=== PATIENT | female | born 1960 | race Caucasian/White ===

== ENCOUNTER 2018-09-19 05:02 | Emergency (ER) | payer MEDICARE, MEDICAID ==
--- NOTE | 2018-09-19 05:16 | ER Document Report ---
ED General - General Stated Complaint: ALTERED MENTAL STATUS
[2018-09-19 05:22] LABS: ABSOLUTE BASOPHILS # (AUTO) 0.1 10^3/uL (0.0-0.2); ABSOLUTE EOSINOPHILS # (AUTO) 0.3 10^3/uL (0.0-0.6); ABSOLUTE LYMPHOCYTES (AUTO) 2.2 10^3/uL (0.5-4.7); ABSOLUTE MONOCYTES (AUTO) 0.7 10^3/uL (0.1-1.4); ABSOLUTE NEUT (AUTO) 4.5 10^3/uL (1.7-8.2); BASOPHILS % (AUTO) 0.8 % (0-2); EOSINOPHILS % (AUTO) 3.4 % (0-6); HEMATOCRIT 33.4 % (36.0-47.0); HEMOGLOBIN 11.2 g/dL (12.0-15.5); LYMPHOCYTES % (AUTO) 28.4 % (13-45); MEAN CORPUSCULAR HEMOGLOBIN 26.3 pg (27.0-33.4); MEAN CORPUSCULAR HGB CONC 33.5 g/dL (32.0-36.0); MEAN CORPUSCULAR VOLUME 79 fl (80-97); MONOCYTES % (AUTO) 9.3 % (3-13); PLATELET COUNT 274 10^3/uL (150-450); RED BLOOD COUNT 4.26 10^6/uL (3.72-5.28); SEGMENTED NEUTROPHILS % (AUTO) 58.1 % (42-78); TOTAL CELLS COUNTED % (AUTO) 100 %; WHITE BLOOD COUNT 7.8 10^3/uL (4.0-10.5)
--- NOTE | 2018-09-19 05:32 | ER Document Report ---
ED Medical Screen (RME) - General Chief Complaint: Altered Mental Status Stated Complaint: ALTERED MENTAL STATUS Notes: Patient is a 58-year-old female who presents to the emergency department with altered mental status. [place] was [place] the park and [employer] was called and she was brought to the emergency department because she was altered. She has bruises to her right lateral chest, right hip, and right anterior ankle. She is unable to provide any meaningful history at time of assessment. TRAVEL OUTSIDE OF THE [place] IN LAST 30 DAYS: No Physical Exam - Vital signs Vitals: Temp Pulse Resp BP Pulse Ox 98.9 F 98 16 113/81 96 09/19/18 05:16 09/19/18 05:16 09/19/18 05:16 09/19/18 05:16 09/19/18 05:16 - Neurological Orientation: Disoriented to place, Disoriented to time, Disoriented to events [place] Coma Scale Eye Opening: To Voice [place] Coma Scale Verbal: Confused [place] Coma Scale Motor: Localizes to Pain [place] Coma Scale Total: 12 Course - Re-evaluation Re-evalutation: 09/19/18 05:15 Due to patient's altered mental status, she will be sent for a CT of the head, basic labs will be drawn, chest x-ray will be done, and urinalysis will be sent. I have greeted and performed a rapid initial assessment of this patient. A comprehensive ED assessment and evaluation of the patient, analysis of test results and completion of medical decision making process will be conducted by an additional ED providers. - Vital Signs Vital signs: Temp Pulse Resp BP Pulse Ox 98.9 F 98 16 113/81 96 09/19/18 05:16 09/19/18 05:16 09/19/18 05:16 09/19/18 05:16 09/19/18 05:16 - Laboratory Result Diagrams: 09/19/18 05:06 09/19/18 05:06 Laboratory results interpreted by me: 09/19/18 09/19/18 05:06 05:06 Hgb 11.2 L Hct 33.4 L MCV 79 L MCH 26.3 L POC Glucose 119 H
[2018-09-19 05:35] LABS: ALANINE AMINOTRANSFERASE 21 U/L (9-52); ALBUMIN 4.3 g/dL (3.5-5.0); ALKALINE PHOSPHATASE 99 U/L (38-126); ANION GAP 10 (5-19); ASPARTATE AMINO TRANSFERASE 46 U/L (14-36); BILIRUBIN,DIRECT 0.3 mg/dL (0.0-0.4); BILIRUBIN,TOTAL 0.4 mg/dL (0.2-1.3); BLOOD UREA NITROGEN 14 mg/dL (7-20); CALCIUM 9.5 mg/dL (8.4-10.2); CARBON DIOXIDE 28 mmol/L (22-30); CHLORIDE 102 mmol/L (98-107); GLUCOSE 119 mg/dL (75-110); POTASSIUM 4.3 mmol/L (3.6-5.0); SODIUM 139.8 mmol/L (137-145); TOTAL PROTEIN 6.9 g/dL (6.3-8.2)
[2018-09-19 05:41] LABS: ALCOHOL < 10 mg/dL (NONE DETECTED)
--- NOTE | 2018-09-19 05:44 | RADIOLOGY REPORT (SQ) ---
EXAM DESCRIPTION: CT HEAD WITHOUT IV CONTRAST COMPLETED DATE/TME: 09/19/2018 05:12 CLINICAL HISTORY: 58 years, Female, AMS COMPARISON: None. TECHNIQUE: 67 Images stored on PACS. All CT scanners at this facility use dose modulation, iterative reconstruction, and/or weight based dosing when appropriate to reduce radiation dose to as low as reasonably achievable (ALARA). [facility]: Dose Right [facility]: CareDose [facility]: Dose Right [facility]: Teradose 4D [facility]: [employer] LIMITATIONS: None. FINDINGS: The globes are intact. Paranasal sinuses and mastoid air cells are unremarkable. No displaced or depressed skull fracture. No intra or extra-axial hemorrhage. CT is limited for evaluation of acute infarct. No CT evidence for large or territorial acute infarct. No mass or midline shift IMPRESSION: Negative exam TECHNICAL DOCUMENTATION: Quality ID # 436: Final reports with documentation of one or more dose reduction techniques (e.g., Automated exposure control, adjustment of the mA and/or kV according to patient size, use of iterative reconstruction technique) copyright 2011 [employer]- All Rights Reserved
--- NOTE | 2018-09-19 06:13 | RADIOLOGY REPORT (SQ) ---
EXAM DESCRIPTION: XR ANKLE 3 OR MORE VIEWS COMPLETED DATE/TME: 09/19/2018 05:13 CLINICAL HISTORY: 58 years, Female, bruising COMPARISON: None. NUMBER OF VIEWS: 3 TECHNIQUE: 3 view right ankle LIMITATIONS: None. FINDINGS: Negative for acute fracture or dislocation. Mild soft tissue swelling. Ankle mortise is intact IMPRESSION: Mild soft tissue swelling. Negative for acute fracture copyright 2010 [employer]- All Rights Reserved
--- NOTE | 2018-09-19 06:14 | RADIOLOGY REPORT (SQ) ---
EXAM DESCRIPTION: XR CHEST 1 VIEW COMPLETED DATE/TME: 09/19/2018 05:15 CLINICAL HISTORY: 58 years, Female, AMS COMPARISON: None. NUMBER OF VIEWS: 1 TECHNIQUE: Portable chest LIMITATIONS: None. FINDINGS: Cardiac megaly. Scarring left lung base. Osteopenia. No pneumothorax IMPRESSION: Cardiomegaly. Scarring left lung base copyright 2010 [employer]- All Rights Reserved
--- NOTE | 2018-09-19 06:14 | RADIOLOGY REPORT (SQ) ---
EXAM DESCRIPTION: XR HIP 2 OR MORE VIEWS COMPLETED DATE/TME: 09/19/2018 05:13 CLINICAL HISTORY: 58 years, Female, bruising COMPARISON: None. NUMBER OF VIEWS: 2 TECHNIQUE: AP pelvis single view right hip LIMITATIONS: None. FINDINGS: Degenerative change of the hips bilaterally. Negative for acute fracture or dislocation. Soft tissue swelling lateral to the right hip. IMPRESSION: No acute osseous abnormality copyright 2010 [employer]- All Rights Reserved
--- NOTE | 2018-09-19 06:20 | RADIOLOGY REPORT (SQ) ---
EXAM DESCRIPTION: XR RIBS 2 VIEWS UNILATERAL COMPLETED DATE/TME: 09/19/2018 05:13 CLINICAL HISTORY: 58 years, Female, bruising COMPARISON: None. NUMBER OF VIEWS: 5 TECHNIQUE: 5 views of the right ribs LIMITATIONS: None. FINDINGS: Osteopenia. However, negative for acute right rib fracture. Soft tissues are unremarkable IMPRESSION: No discrete right rib fracture. Osteopenia copyright 2010 [employer]- All Rights Reserved
[2018-09-19 06:30] LABS: LIPASE 119.9 U/L (23-300)
[2018-09-19 06:33] LABS: ACETAMINOPHEN < 10 ug/mL (10-30); SALICYLATE < 1.0 mg/dL (2.0-20.0)
[2018-09-19 06:38] LABS: APPEARANCE,URINE CLEAR; BILIRUBIN,URINE NEGATIVE (NEGATIVE); COLOR,URINE YELLOW; GLUCOSE, URINE NEGATIVE (NEGATIVE); KETONES,URINE NEGATIVE (NEGATIVE); LEUKOCYTE ESTERASE,URINE TRACE (NEGATIVE); NITRITE,URINE NEGATIVE (NEGATIVE); PROTEIN,URINE NEGATIVE (NEGATIVE); URINE SPECIFIC GRAVITY 1.009; UROBILINOGEN,URINE NEGATIVE mg/dL (<2.0)
[2018-09-19] MEDS ORDERED: NORMAL SALINE 1000 ML 1,000 ML IV ONE (06:42)
[2018-09-19] MEDS ORDERED: DIPHENHYDRAMINE HCL 50 MG/ML VIAL IV ONE (06:42)
[2018-09-19] MEDS ORDERED: HALOPERIDOL LACTATE INJ 5 MG/1 ML VIAL IV ONE ×2 (06:42→07:30)
--- NOTE | 2018-09-19 06:53 | EKG REPORT ---
SEVERITY:- NORMAL ECG - SINUS RHYTHM : Confirmed by: Antionette Ramirez 19-Sep-2018 06:52:41
--- NOTE | 2018-09-19 06:54 | ER Document Report ---
ED General <CERONADAM - Last Filed: 09/19/18 15:54> - General TRAVEL OUTSIDE OF THE [place] IN LAST 30 DAYS: No - HPI Patient complains to provider of: Altered mental status <DAVID RIGGINS - Last Filed: 09/27/18 17:40> - General Chief Complaint: Altered Mental Status Stated Complaint: ALTERED MENTAL STATUS Time Seen by Provider: 09/19/18 06:07 - HPI Notes: Patient is being brought in for altered mental status. According to the nurse patient was brought in by local law enforcement. Nurse states that local law enforcement explained that this occurred at night prior found the patient in public was able to call a family member to have the patient picked up however tonight patient was found in the park naked and no family was available to take custody of the patient therefore brought her to the ER. Upon my evaluation patient has paper scrubs on is easily aroused with some slight agitation upon arrival moving all 4 extremities able to speak in complete sentences of the she is confused. Patient is unable to give any meaningful information A brief review of the patient's medical records available in [facility] was performed (DAVID RIGGINS) - Related Data Allergies/Adverse Reactions: No Known Allergies Allergy (Unverified 09/19/18 05:36) Past Medical History - Social History Smoking Status: Unknown if Ever Smoked Family History: Reviewed & Not Pertinent Patient has suicidal ideation: - unk Patient has homicidal ideation: - unk Renal/ Medical History: Denies: Hx Peritoneal Dialysis <DAVID RIGGINS - Last Filed: 09/27/18 17:40> Review of Systems - Review of Systems -: Yes ROS unobtainable due to patient's medical condition <DAVID RIGGINS - Last Filed: 09/27/18 17:40> - Review of Systems Notes: Altered mental status (DAVID RIGGINS) Physical Exam - Vital signs Interpretation: Normal - General General appearance: Appears well, Alert - HEENT Head: Normocephalic, Atraumatic Eyes: Normal Pupils: PERRL - Respiratory Respiratory status: No respiratory distress Chest status: Nontender Breath sounds: Normal Chest palpation: Normal - Cardiovascular Rhythm: Regular Heart sounds: Normal auscultation Murmur: No - Abdominal Inspection: Normal Distension: No distension Bowel sounds: Normal Tenderness: Nontender Organomegaly: No organomegaly - Back Back: Normal, Nontender - Extremities General upper extremity: Normal inspection, Nontender, Normal color, Normal ROM, Normal temperature General lower extremity: Nontender, Normal color, Normal ROM, Normal temperature, Normal weight bearing. No: Normal inspection - Bruising to the right thigh right ankle of various stages of healing, Shilpa's sign - Neurological Neuro grossly intact: Yes Cognition: Normal Orientation: AAOx4 [place] Coma Scale Eye Opening: Spontaneous [place] Coma Scale Verbal: Confused [place] Coma Scale Motor: Obeys Commands [place] Coma Scale Total: 14 Speech: Normal Motor strength normal: LUE, RUE, LLE, RLE Sensory: Normal - Psychological Associated symptoms: Agitated, Confused - Skin Skin Temperature: Warm Skin Moisture: Dry Skin Color: Normal <DAVID RIGGINS - Last Filed: 09/27/18 17:40> - Vital signs Vitals: Temp Pulse Resp BP Pulse Ox 98.9 F 98 16 113/81 96 09/19/18 05:16 09/19/18 05:16 09/19/18 05:16 09/19/18 05:16 09/19/18 05:16 Course - Laboratory Result Diagrams: 09/19/18 05:06 09/19/18 05:06 <ADAM CERON - Last Filed: 09/19/18 15:54> - Laboratory Result Diagrams: 09/19/18 05:06 09/19/18 05:06 <DAVID RIGGINS - Last Filed: 09/27/18 17:40> - Re-evaluation Re-evalutation: 09/19/18 06:53 Patient continued to become agitated difficult to redirect the patient back to her stretcher therefore medications were given to help the patient with her medical conditions initial laboratory studies not reveal any critical pathology at this time. X-ray studies ordered prior to my evaluation have been performed showing no intracranial or osseous pathology. Patient is afebrile doubt any infectious process at this time. Reviewed patient's medication list and all narcotics website does show multiple prescriptions for tramadol and Ambien. Pos sible etiology overdose of Ambien causing altered mental state. We will continue to monitor the patient. 09/19/18 08:21 Patient has been given Haldol Benadryl Ativan still slightly agitated soft rest raints have been placed and the patient until our psychiatric team can evaluate and obtain collateral information. 09/19/18 14:48 Patient is now awake not agitated we will medically clear the patient for psych team to evaluate 09/19/18 15:49 Family at bedside at this time. States concern that the patient may have interaction with her medications medication list obtained by [facility] shows that the patient recently refilled her Ambien new medication also will be atorvastatin. Did not see any clearly reaction noted on properties unclear etiology of the patient's acute altered mental status however at this time was to be improved did recommend the patient to hold Ambien follow-up with your primary care physician in the next 24-48 hours. (DAVID RIGGINS) - Vital Signs Vital signs: Temp Pulse Resp BP Pulse Ox 97.8 F 98 20 143/71 H 98 09/19/18 16:40 09/19/18 16:40 09/19/18 16:40 09/19/18 16:40 09/19/18 16:40 - Laboratory Laboratory results interpreted by me: 09/19/18 09/19/18 09/19/18 05:06 05:06 05:06 Hgb 11.2 L Hct 33.4 L MCV 79 L MCH 26.3 L Glucose 119 H POC Glucose 119 H AST 46 H Ur Leukocyte Esterase Urine Ascorbic Acid Salicylates Acetaminophen 09/19/18 09/19/18 05:06 06:00 Hgb Hct MCV MCH Glucose POC Glucose AST Ur Leukocyte Esterase TRACE H Urine Ascorbic Acid 40 H Salicylates < 1.0 L Acetaminophen < 10 L - EKG Interpretation by Me Additional EKG results interpreted by me: 09/19/18 07:13 EKG shows normal sinus rhythm with a rate of 85 MS 124 QRS duration 82 QT/QTc 372 443 EKG shows normal sinus rhythm with no T wave inversions no ST segment depressions or elevations. (DAVID RIGGINS) Discharge <ADAM CERON - Last Filed: 09/19/18 15:54> <DAVID RIGGINS - Last Filed: 09/27/18 17:40> - Discharge Clinical Impression: Altered mental status Condition: Stable Disposition: HOME, SELF-CARE Additional Instructions: You have been evaluated both medical and behavioral health teams have been deemed appropriate for discharge. You are highly encouraged to follow-up with your outpatient provider to discuss possible medication changes. You are encouraged to stop taking your Ambien as this could be contributing to your altered mental status difficulties. Altered Mental Status An altered mental status is a change in the normal functioning of the brain. This alteration of function can range from minor decreased brain function with some forgetfulness and confusion to complete loss of consciousness and coma. There are many possible causes of an altered mental status and include brain injuries such as trauma or strokes, problems with oxygen supply to the brain, fever and infections of the brain and/or elsewhere in the body, metabolic abnormalities such as low or high blood sugar, overdoses or excessive medication ingestion, and mental and psychiatric illnesses. Sometimes the altered mental status resolves and a definite cause is not determined. If a cause for your altered mental status was found, it has likely been corrected. Your evaluation has not shown any condition that requires that you be admitted to the hospital. It is believed that you are safe to leave and return to your home. If you have a return of your symptoms, you should return for re-evaluation. AT ANY TIME, IF YOUR SYMPTOMS CHANGE SIGNIFICANTLY OR WORSEN OR YOU DEVELOP NEW SYMPTOMS, RETURN TO THE EMERGENCY DEPARTMENT IMMEDIATELY FOR RE-EVALUATION. Referrals: [facility] [Outside] - Follow up as needed
[2018-09-19] MEDS ORDERED: LORAZEPAM INJ 2 MG/1 ML VIAL IV ONE (07:03)
[2018-09-19 07:04] LABS: URINE AMPHETAMINES SCREEN NEGATIVE; URINE BARBITURATES SCREEN NEGATIVE; URINE BENZODIAZEPINES SCREEN NEGATIVE; URINE COCAINE SCREEN NEGATIVE; URINE MARIJUANA (THC) SCREEN NEGATIVE; URINE METHADONE SCREEN NEGATIVE; URINE PHENCYCLIDINE SCREEN NEGATIVE
[2018-09-19 07:49] LABS: VENOUS BLOOD BASE EXCESS 2.8 mmol/L; VENOUS BLOOD HCO3 27.9 mmol/L (20-32); VENOUS BLOOD PCO2 45.1 mmHg (35-63); VENOUS BLOOD PH 7.41 (7.30-7.42)
[2018-09-19 16:41] VITALS: BP 143/71
--- NOTE | 2018-09-22 13:48 | PSYCHOLOGICAL NOTE ---
Psych Note - Psych Note Date seen by psych provider: 09/19/18 Time seen by psych provider: 08:00 Psych Note: Reason for Consult: AMS Patient's sister, Aria [phone], at bedside per patient's request Patient arrived to [facility] ED via EMS for altered mental status. Patient was found wandering in a park naked so [employer] was called. Patient was reportedly found previous night with altered mental status and patient's twin sister Aria was able to be contacted and patient was released to her. First attempt to evaluate patient Patient is currently in two-point soft restraints. She is able to articulate that she is in [place] and picks up her medications from [facility]. Patient discloses that she believes is currently September 14, 1967 denies any substance abuse or mental health diagnosis. She reports that she is lived in [place] for 3 years and that her sister Aria also lives here and provided the number [phone] (clinician notes correct number is listed above). Clinician spoke with patient's sister who reports she is currently on her way to [facility]. Clinician provided directions and confirmed she would speak with her upon arrival. Patient sister Aria at bedside per patient's request Patient reports that she started a new medication and is unsure if there is been an interaction. Patient sister says this is not like the patient and now is been 2 nights in a row. They report that they have trouble sleeping and have been taking Xanax for many years. Patient denies misuse reports she only took one. Patient's sister discloses that the patient had one previous episode similar to this which was a result of a medication. She confirms she will be part of the patient's discharge plan and has no concerns with the patient returning home. Clinician notes significant bruising on the patient upper thigh. She reports that she has been doing some construction in the home and was taking down a closet door when her dog ran into her. Patient reports she does have a diagnosis of major depressive disorder but has been medicated and stable for many years. Patient is alert and orientated to person, place, time and circumstance. Mood is euthymic with congruent affect. Patient denies suicidal and homicidal ideation. Delusions are absent behaviors congruent with an intact reality based presentation i.e. organized and linear thought process. Eye contact was well- maintained. Conversational speech is within normal rate, tone and prosody. Intellectual abilities appear to be within the average range. Attention and concentration are fair. Insight, judgment, impulse control are fair. No medication augmentations at this time Substance/medication-induced psychosis R/O benzodiazepine use disorder Impression/Plan: Patient is cleared from acute psychiatric services. Patient is recommended to stop taking Xanax as this may be contributing to her altered mental status episodes. Is recommended she consult with her primary care physician in addition to her mental health provider for continued services. Patient's sister agrees to be part of patient's plan of care and confirms she will ensure the patient follows up with recommendations and does not have access to medications or weapons. Both patient and patient's sister have no concerns with the patient discharging home. Dr. Ferrari was consulted and care management this patient; attending physicians in agreement with recommendations and disposition.
== END 2018-09-19 16:41 | disposition home or self-care (01) ==
LOC: ER 05:02
DX: R41.0 Disorientation, unspecified (principal); R45.1 Restlessness and agitation; S70.11XA Contusion of right thigh, initial encounter; S90.01XA Contusion of right ankle, initial encounter; W54.1XXA Struck by dog, initial encounter; Y93.H3 Activity, building and construction; Y92.009 Unspecified place in unspecified non-institutional (private) residence as the place of occurrence of the external cause; X58.XXXA Exposure to other specified factors, initial encounter; Z79.899 Other long term (current) drug therapy; Z78.1 Physical restraint status
CPT/HCPCS: 93005; 96376; 99285; 96361; 96374; 96375; 36415; 82962; 80307 ×4; 83690; 85025; 80053; 81001; 82803; 73610; 71045; 73502; 71100; 70450; 93010; J1200; J1630; J2060; J7030

== ENCOUNTER → 2018-10-14 | Outpatient (CLI) | payer MEDICAID, MEDICARE ==
--- NOTE | 2018-10-14 16:16 | WOMENS IMAGING REPORT ---
EXAM DESCRIPTION: BILAT SCREENING MAMMO W/CAD COMPLETED DATE/TIME: 10/14/2018 4:00 pm REASON FOR STUDY: ROUTINE BILATERAL SCREENING,Z12.31 Z12.31 ENCNTR SCREEN MAMMOGRAM FOR MALIGNANT N EOPLASM OF KELLY COMPARISON: None. TECHNIQUE: Standard craniocaudal and mediolateral oblique views of each breast recorded using [employer] acquisition. LIMITATIONS: None. FINDINGS: No masses, calcifications or architectural distortion. No areas of suspicion. Read with the assistance of CAD. .[facility] - R2 Cenova Version 1.3 .[facility] - R2 Cenova Version 1.3 .[facility] - R2 Cenova Version 2.4 .[facility] - R2 Cenova Version 2.4 .[facility] - R2 Incident Response Consultant Version 9.2 IMPRESSION: NORMAL MAMMOGRAM. BIRADS 1. BREAST DENSITY: b. There are scattered areas of fibroglandular density. BIRAD: 1 NEGATIVE RECOMMENDATION: ROUTINE SCREENING COMMENT: The patient has been notified of the results by letter per [facility] requirements. Additional no tification policies are in place for contacting patient with suspicious or incomplete findings. Quality ID #225: The [employer] recommends an annual screening mammogram for women aged 40 years or over. This facility utilizes a reminder system to ensure that all patients receive reminder letters, and/or direct phone calls for appointments. This includes reminders for routine scr eening mammograms, diagnostic mammograms, or other Breast Imaging Interventions when appropriate. Th is patient will be placed in the appropriate reminder system. The [employer] (ACR) has developed recommendations for screening MRI of the breast s in certain patient populations, to be used in conjunction with mammography. Breast MRI surveillanc e may be appropriate for women with more than 20% lifetime risk of developing breast cancer as deter mined by genetic testing, significant family history of the disease, or history of mantle radiation f or Hodgkins Disease. ACR Practice Guidelines 2008. TECHNICAL DOCUMENTATION: FINDING NUMBER: (1) ASSESSMENT: (1) JOB ID: [id number] [employer]- All Rights Reserved Reading location - IP/workstation name: [email or web address]
== END ==
LOC: WI 15:45
PROVIDERS: ATTEND Family Medicine
DX: Z12.31 Encounter for screening mammogram for malignant neoplasm of breast (principal)
CPT/HCPCS: 77067